=== PATIENT | female | born 1975 | race Caucasian/White ===

== ENCOUNTER 2019-07-04 15:48 | Emergency (ER) | payer OTHER ==
[2019-07-04 16:00] VITALS: TEMP 98.2
--- NOTE | 2019-07-04 17:18 | ED ---
General Adult HPI - General Chief complaint: Recheck/Abnormal Lab/Rx Stated complaint: Drug & Alcohol testing Time Seen by Provider: 07/04/19 16:04 Source: patient Mode of arrival: ambulatory Limitations: no limitations - History of Present Illness Initial comments: Patient is a 42-year-old female presenting to emergency Department with a chief complaint of alcohol checked. The patient's employer was concerned that the patient may be drinking and brought her to the ED for alcohol level evaluation. Patient reports she had some wine prior to going to bed yesterday. However, because the employer does not have a contract with the hospital the patient has to be evaluated medically. Patient reports that she feels anxious right now but otherwise has no medical complaints. - Related Data Allergies Allergy/AdvReac Type Severity Reaction Status Date / Time No Known Allergies Allergy Verified 07/04/19 15:59 Review of Systems ROS Statement: Those systems with pertinent positive or pertinent negative responses have been documented in the HPI. ROS Other: All systems not noted in ROS Statement are negative. Past Medical History Past Medical History: No Reported History History of Any Multi-Drug Resistant Organisms: None Reported Past Surgical History: No Surgical Hx Reported Past Psychological History: No Psychological Hx Reported Smoking Status: Former smoker Past Alcohol Use History: Occasional Past Drug Use History: None Reported General Exam Limitations: no limitations General appearance: alert, in no apparent distress Head exam: Present: atraumatic, normocephalic, normal inspection Eye exam: Present: normal appearance, PERRL, EOMI Pupils: Present: normal accommodation ENT exam: Present: normal exam, normal oropharynx, mucous membranes moist, TM's normal bilaterally, normal external ear exam Neck exam: Present: normal inspection, full ROM. Absent: tenderness Respiratory exam: Present: normal lung sounds bilaterally Cardiovascular Exam: Present: normal rhythm, tachycardia, normal heart sounds Extremities exam: Present: normal inspection Back exam: Present: normal inspection Neurological exam: Present: alert, oriented X3 Psychiatric exam: Present: normal affect, normal mood Skin exam: Present: warm, intact, normal color Course Vital Signs 07/04/19 07/04/19 15:55 17:20 Temperature 98.2 F Pulse Rate 125 H 88 Respiratory 22 16 Rate Blood Pressure 142/82 125/78 O2 Sat by Pulse 99 98 Oximetry Medical Decision Making - Medical Decision Making Patient is a 43-year-old female presenting to the emergency department with a chief complaint of alcohol checked. The patient's employer wanted to obtain the alcohol for the patient because he is suspecting that she has been drinking. Because the employer does not have a contract with the hospital, the patient alcohol levels cannot be released him. The physical examination is unremarkable. Patient is tachycardic but states that is due to her current anxiety from the situation. Her BAT is 0.00. I will proper documentation was discussed with the employer and the patient. Strict return parameters were thoroughly discussed with patient is understanding and agreeable. Case di scussed physician. Disposition Clinical Impression: Encounter for health check Disposition: HOME SELF-CARE Condition: Stable Instructions (If sedation given, give patient instructions): Alcohol Use Disorder (ED) Additional Instructions: Please follow with primary care. Please return to emergency department if symptoms worsen. Is patient prescribed a controlled substance at d/c from ED?: No Referrals: None,Stated [Primary Care Provider] - 1-2 days Time of Disposition: 17:18
[2019-07-04 17:22] VITALS: BP 125/78; PULSE 88; RESP 16
== END 2019-07-04 17:20 | disposition home or self-care (01) ==
LOC: EC 15:48
DX: Z02.83 Encounter for blood-alcohol and blood-drug test (principal); F41.9 Anxiety disorder, unspecified; Z87.891 Personal history of nicotine dependence
CPT/HCPCS: 99282